=== PATIENT | female | born 1985 | race Caucasian/White ===

== ENCOUNTER 2018-01-21 13:11 | Outpatient (CLI) | payer OTHER ==
--- NOTE | 2018-01-21 14:43 | ULT ---
OB ULTRASOUND: Comparison: None. History: female. Evaluate size, dates, and anatomy. Technique: Multiplanar grayscale and color doppler images were obtained in a transabdominal ult rasound. FINDINGS: There is a single live intrauterine with heart rate of 157 beats/minute. A survey was performed. The head, intracranial structures, heart, stomach, kidneys, umbilical cord, umbilical cord insertion, spine, lips, and extremities were evaluated and were unremarkable. There is limited visualization of the spine. Average age of the fetus based off today's examination is 24 weeks 4 days. The following measurements were taken: BPD 6.05 cm 24 weeks 4 days HC 22.54 cm 24 weeks 4 days AC 20.00 cm 24 weeks 4 days FL 4.42 cm 24 weeks 4 days The placenta is posterior in location. The inferior tip of the placenta appears to touch the internal os of the cervical but does not cover the internal os consistent with marginal placenta previa. EDUARDO is 15.5 cm, which is normal. The cervix is normal in length. IMPRESSION: 1. Single live intrauterine with estimated age of 24 weeks 4 days. 2. Marginal placental previa. It is recommended that a repeat ultrasound be performed in the 3rd trim carlos to evaluate for placenta previa at the time of delivery. POS: [facility]
== END 2018-01-21 13:12 | disposition home or self-care (01) ==
LOC: ULT 13:11
PROVIDERS: ATTEND Family Medicine
DX: O44.22 Partial placenta previa NOS or without hemorrhage, second trimester (principal); Z3A.24 24 weeks gestation of pregnancy; Z37.9 Outcome of delivery, unspecified
CPT/HCPCS: 76805